=== PATIENT | female | born 1970 | race American Indian/Alaskan Native ===

== ENCOUNTER 2016-12-19 16:57 | Emergency (ER) | payer OTHER ==
[2016-12-19 20:04] LABS: Bilirubin,Urine NEG (Negative); Blood,Urine NEG (Negative); Ketones,Urine TR mg/dL (Negative); Leukocyte Esterase,Urine TR (Negative); Mucus,Urine 2+ /HPF; Nitrite,Urine NEG (Negative)
[2016-12-19 20:05] VITALS: BP 107/73
[2016-12-19] MEDS ORDERED: BENADRYL IV ONE (21:02)
[2016-12-19] MEDS ORDERED: REGLAN IV ONE (21:02)
--- NOTE | 2016-12-19 21:04 | Emergency Department Report ---
ED Headache HPI - General Chief Complaint: Headache Stated Complaint: HEADACHE X 1 MONTH/DIABETIC Time Seen by Provider: 12/19/16 19:28 - History of Present Illness Initial Comments: She is a 46-year-old female with a history of diabetes controlled with insulin presents to ED complaining of headaches for the past couple of months. Patient states headache is localized to frontal and hospital region of the head. She describes it as throbbing in nature that speak, be constant. Patient rates the pain a 10 out of 10 in intensity stating she is taking Aleve and naproxen with no relief. Patient states headache is worsened by sunlight during these headache. She denies fevers/chills/nausea/vomiting/blurry vision/dizziness. Quality: severe Head Injury Location: frontal, occipital Recent Head Trauma: no recent headache/trauma, frequent headaches, chronic headaches Allergies/Adverse Reactions: Allergies haloperidol [From Haldol] Allergy (Verified 12/11/14 16:51) Seizure haloperidol lactate [From Haldol] Allergy (Verified 12/11/14 16:51) Seizure Home Medications: Ambulatory Orders Fluconazole [Diflucan] 150 mg PO QDAY #3 tablet 08/04/13 HYDROcodone/APAP 5-325 [[place] 5/325 mg] 1 - 2 each PO Q4-6H PRN #14 tablet 08/04 Butalb/Acetaminophen/Caffeine [Fioricet 50-300-40 mg CAP] 1 cap PO Q8HR PRN #30 cap 12/19/16 Prochlorperazine [Compazine] 10 mg PO BID #30 tablet 12/19/16 ED Review of Systems ROS: Stated complaint: HEADACHE X 1 MONTH/DIABETIC Other details as noted in HPI Constitutional: denies: chills, fever Eyes: denies: eye pain, eye discharge, vision change ENT: denies: ear pain, throat pain Respiratory: denies: cough, shortness of breath, wheezing Cardiovascular: denies: chest pain, palpitations Endocrine: no symptoms reported Gastrointestinal: denies: abdominal pain, nausea, diarrhea Genitourinary: denies: urgency, dysuria, frequency, hematuria, discharge Musculoskeletal: denies: back pain, joint swelling, arthralgia Skin: denies: rash, lesions Neurological: headache. denies: weakness, numbness, paresthesias, confusion Psychiatric: denies: anxiety, depression Hematological/Lymphatic: denies: easy bleeding, easy bruising ED Past Medical Hx - Past Medical History Previous Medical History?: Yes Hx Diabetes: Yes Hx Psychiatric Treatment: Yes (MANIC DEPRESSION) Additional medical history: fibromyalgia. - Surgical History Additional Surgical History: ECTOPIC . TONSILLECTOMY - Social History Smoking Status: Current Every Day Smoker Substance Use Type: None - Medications Home Medications: Home Medications Medication Instructions Recorded Confirmed Last Taken Type Fluconazole [Diflucan] 150 mg PO QDAY #3 tablet 08/04/13 Unknown Rx HYDROcodone/APAP 5-325 [[place] 1 - 2 each PO Q4-6H PRN #14 tablet 08/04/13 Unknown Rx 5/325 mg] Butalb/Acetaminophen/Caffeine 1 cap PO Q8HR PRN #30 cap 12/19/16 Unknown Rx [Fioricet 50-300-40 mg CAP] Prochlorperazine [Compazine] 10 mg PO BID #30 tablet 12/19/16 Unknown Rx ED Physical Exam - General Limitations: No Limitations General appearance: alert, in no apparent distress - Head Head exam: Present: atraumatic, normocephalic - Eye Eye exam: Present: normal appearance, PERRL, EOMI. Absent: conjunctival injection, nystagmus Pupils: Present: normal accommodation - ENT ENT exam: Present: mucous membranes moist - Neck Neck exam: Present: normal inspection. Absent: tenderness, lymphadenopathy - Respiratory Respiratory exam: Present: normal lung sounds bilaterally. Absent: respiratory distress - Cardiovascular Cardiovascular Exam: Present: regular rate, normal rhythm. Absent: systolic murmur, diastolic murmur, rubs, gallop - GI/Abdominal GI/Abdominal exam: Present: soft, normal bowel sounds - Extremities Exam Extremities exam: Present: normal inspection - Back Exam Back exam: Present: normal inspection. Absent: tenderness, CVA tenderness (R), CVA tenderness (L) - Neurological Exam Neurological exam: Present: alert, oriented X3, CN II-XII intact, normal gait. Absent: motor sensory deficit - Expanded Neurological Exam Expanded Patient oriented to: Present: person, place, time Cranial nerves: EOM's Intact: Normal, Facial Sensation: Normal Cerebellar function: Finger to Nose: Normal, Heel to [place]: Normal Sensory exam: Upper Extremity Light Touch: Normal, Upper Extremity Temperature: Normal, Lower Extremity Light Touch: Normal, Lower Extremity Pin Prick: Normal Motor strength exam: RUE: 5, LUE: 5, RLE: 5, LLE: 5 DTR: knee (R): 2+, knee (L): 2+ Best Eye Response ([place]): (4) open spontaneously Best Motor Response ([place]): (6) obeys commands Best Verbal Response ([place]): (5) oriented [place] Total: 15 - Psychiatric Psychiatric exam: Present: normal affect, normal mood - Skin Skin exam: Present: warm, dry, intact, normal color. Absent: rash ED Course Vital Signs 12/19/16 12/19/16 17:02 20:02 Temperature 98.8 F 98.4 F Pulse Rate 100 H 88 Respiratory 18 18 Rate Blood Pressure 122/80 Blood Pressure 107/73 [Left] O2 Sat by Pulse 99 100 Oximetry - Reevaluation(s) Reevaluation #1: Patient sleeping comfortably in the room. States pain is resolved. 12/19/16 22:17 ED Medical Decision Making - Lab Data Result diagrams: 12/19/16 22:00 12/19/16 22:00 Laboratory Results - last 24 hr 12/19/16 12/19/16 12/19/16 17:55 22:00 22:00 VBG pH 7.348 Sodium 136 L Potassium 4.3 Chloride 98.0 Carbon Dioxide 25 Anion Gap 17 BUN 9 Creatinine 0.7 Estimated GFR > 60 BUN/Creatinine Ratio 12.85 Glucose 232 H POC Glucose 352 H Calcium 8.6 Urine Color Urine Turbidity Urine pH Ur Specific [place] Urine Protein Urine Glucose (UA) Urine Ketones Urine Blood Urine Nitrite Urine Bilirubin Urine Urobilinogen Ur Leukocyte Esterase Urine WBC (Auto) Urine RBC (Auto) U Epithel Cells (Auto) Hyaline Casts Urine Mucus 12/19/16 Unknown VBG pH Sodium Potassium Chloride Carbon Dioxide Anion Gap BUN Creatinine Estimated GFR BUN/Creatinine Ratio Glucose POC Glucose Calcium Urine Color Yellow Urine Turbidity Clear Urine pH 6.0 Ur Specific [place] 1.031 H Urine Protein 30 mg/dl Urine Glucose (UA) >=500 Urine Ketones Tr Urine Blood Neg Urine Nitrite Neg Urine Bilirubin Neg Urine Urobilinogen 2.0 Ur Leukocyte Esterase Tr Urine WBC (Auto) 5.0 Urine RBC (Auto) 1.0 U Epithel Cells (Auto) 6.0 Hyaline Casts 1 Urine Mucus 2+ - Medical Decision Making 46-year-old female presents with migraine headache. CT of the head ordered. CT of the head shows no acute intracranial findings. CBC, BMP, urinalysis obtained. Blood glucose mildly elevated. Patient has taken insulin today. Discussed with patient to follow-up with primary physician for treatment of migraines Discussed patient to avoid triggers Patient received IV Benadryl and Reglan in ED She has no neurological deficit and is neurologically intact. Vital signs are normal patient is in no acute distress Critical care attestation.: If time is entered above; I have spent that time in minutes in the direct care of this critically ill patient, excluding procedure time. ED Disposition Clinical Impression: Migraine headache without aura Qualifiers: Status migrainosus presence: without status migrainosus Intractability: not intractable Qualified Code(s): G43.009 - Migraine without aura, not intractable , without status migrainosus Disposition: DC- TO HOME OR SELFCARE Is pt being admited?: No Does the pt Need Aspirin: No Condition: Stable Instructions: Migraine Headache (ED), Tension Headache (ED), Acute Headache (ED ) Prescriptions: Butalb/Acetaminophen/Caffeine [Fioricet 50-300-40 mg CAP] 1 cap PO Q8HR PRN #30 cap PRN Reason: Headache Prochlorperazine [Compazine] 10 mg PO BID #30 tablet Referrals: PRIMARY CARE, [Primary Care Provider] - 3-5 Days HERNANDEZ LOVETT MD [Staff Physician] - 3-5 Days [facility] [Outside] - 3-5 Days [facility] [Outside] - 3-[address] [facility] [Outside] - 3-5 Days Forms: Accompanied Note, Work/School Release Form(ED) Time of Disposition: 22:12
--- NOTE | 2016-12-19 21:40 | Cat Scan Report ---
FINAL REPORT EXAM: CT HEAD/BRAIN WO CON HISTORY: cerrato TECHNIQUE: Noncontrast CT axial images of the brain. PRIORS: 04 August 2013. FINDINGS: No parenchymal mass, mass effect, hemorrhage, midline shift or hydrocephalus. No evidence of acute cortical infarct. No abnormal, extra-axial fluid or air collection. Osseous calvarium grossly intact. Mild mucosal thickening in the bilateral ethmoid sinuses. IMPRESSION: 1. No acute intracranial findings.
[2016-12-19 22:27] LABS: Hemoglobin 13.1 gm/dl (10.1-14.3); Mean Corpuscular HGB Conc 34 % (30-34); Mean Corpuscular Hemoglobin 29 pg (28-32); Mean Corpuscular Volume 85 fl (79-97); Platelet Count 249 K/mm3 (140-440); Red Blood Count 4.59 M/mm3 (3.65-5.03); Red Cell Distribution Width 13.3 % (13.2-15.2); White Blood Count 7.1 K/mm3 (4.5-11.0)
[2016-12-19 22:33] LABS: Anion Gap 17 mmol/L; BUN/Creatinine Ratio 12.85; Blood Urea Nitrogen 9 mg/dL (7-17); Calcium 8.6 mg/dL (8.4-10.2); Carbon Dioxide 25 mmol/L (22-30); Glucose 232 mg/dL (65-100); Potassium 4.3 mmol/L (3.6-5.0); Sodium 136 mmol/L (137-145)
[2016-12-19 23:20] LABS: Basophils % (Manual) 0 % (0.0-1.8); Blastocytes % (Manual) 0 %; Hypochromasia 1+
[2016-12-19 23:21] LABS: Diff Status Complete; Elliptocytes Few
== END 2016-12-19 23:05 | disposition home or self-care (01) ==
LOC: ED 16:57
DX: G43.009 Migraine without aura, not intractable, without status migrainosus (principal); E11.9 Type 2 diabetes mellitus without complications; F32.9 Major depressive disorder, single episode, unspecified; F17.200 Nicotine dependence, unspecified, uncomplicated; Z88.8 Allergy status to other drugs, medicaments and biological substances
CPT/HCPCS: 36415; 70450; 80048; 81001; 82805; 82962; 85007; 85025; 96374; 96375; 99284; J1200; J2765

== ENCOUNTER 2017-01-12 12:54 | Inpatient (IN) | payer OTHER ==
[2017-01-12 13:49] LABS: Eosinophils % (Auto) 0.8 % (0.0-4.3); Hematocrit 42.6 % (30.3-42.9); Hemoglobin 14.1 gm/dl (10.1-14.3); Mean Corpuscular HGB Conc 33 % (30-34); Mean Corpuscular Hemoglobin 29 pg (28-32); Mean Corpuscular Volume 86 fl (79-97); Platelet Count 284 K/mm3 (140-440); Red Blood Count 4.94 M/mm3 (3.65-5.03); Red Cell Distribution Width 13.3 % (13.2-15.2); White Blood Count 6.9 K/mm3 (4.5-11.0)
[2017-01-12 14:10] LABS: Anion Gap 18 mmol/L; Blood Urea Nitrogen 7 mg/dL (7-17); Calcium 9.4 mg/dL (8.4-10.2); Carbon Dioxide 27 mmol/L (22-30); Chloride 91.2 mmol/L (98-107); Glucose 280 mg/dL (65-100); Potassium 4.2 mmol/L (3.6-5.0); Sodium 132 mmol/L (137-145)
[2017-01-12] MEDS ORDERED: PHENERGAN PO ONE (20:44)
--- NOTE | 2017-01-12 20:44 | Emergency Department Report ---
HPI - General Chief Complaint: Extremity Problem,Nontraumatic Time Seen by Provider: 01/12/17 20:28 - HPI HPI: Room 8 The patient is a 46-year-old female presenting with a chief complaint of intermittent left-sided paresthesia. The patient states for the past 4 days she has had intermittent numbness and "locking up" of her left side. Patient states her left arm and left leg suffers from pain and numbness intermittently for the past 4 days. Patient states the symptoms last for approximate 5 minutes and then resolved. The patient states she is having 3-4 episodes a day. Patient denies dysarthria or dysphagia. Currently the patient says she has numbness and tingling in her left lower extremity Location: Left side Duration: Intermittent 4 days Quality: Pain and numbness Severity: Moderate Modifying factors: [see above] Context: [see above] Mode of transportation: Unknown ED Past Medical Hx - Past Medical History Previous Medical History?: Yes Hx Diabetes: Yes Hx Psychiatric Treatment: Yes (MANIC DEPRESSION) Additional medical history: fibromyalgia. - Surgical History Past Surgical History?: Yes Additional Surgical History: ECTOPIC . TONSILLECTOMY - Family History Family history: no significant - Social History Smoking Status: Current Every Day Smoker Substance Use Type: Heroin (history of heroin use. Now being treated with methadone) - Medications Home Medications: Home Medications Medication Instructions Recorded Confirmed Last Taken Type Fluconazole [Diflucan] 150 mg PO QDAY #3 tablet 08/04/13 Unknown Rx HYDROcodone/APAP 5-325 [[place] 1 - 2 each PO Q4-6H PRN #14 tablet 08/04/13 Unknown Rx 5/325 mg] Butalb/Acetaminophen/Caffeine 1 cap PO Q8HR PRN #30 cap 12/19/16 Unknown Rx [Fioricet 50-300-40 mg CAP] Prochlorperazine [Compazine] 10 mg PO BID #30 tablet 12/19/16 Unknown Rx ED Review of Systems ROS: Stated complaint: HEADACHE,LEFT SIDE NUMBNESS Other details as noted in HPI Comment: All other systems reviewed and negative Constitutional: denies: chills, fever Eyes: denies: eye pain, eye discharge, vision change ENT: denies: ear pain, throat pain Respiratory: denies: cough, shortness of breath, wheezing Cardiovascular: denies: chest pain, palpitations Endocrine: no symptoms reported Gastrointestinal: denies: abdominal pain, nausea, diarrhea Genitourinary: denies: urgency, dysuria, discharge Musculoskeletal: denies: back pain Skin: denies: rash, lesions Neurological: headache, numbness, paresthesias Psychiatric: denies: anxiety, depression Hematological/Lymphatic: denies: easy bleeding, easy bruising Physical Exam - Physical Exam Vital Signs: Vital Signs 01/12/17 01/12/17 13:00 19:07 Temperature 98.5 F Pulse Rate 87 74 Respiratory 16 18 Rate Blood Pressure 164/104 Blood Pressure 136/98 [Left] O2 Sat by Pulse 100 100 Oximetry Physical Exam: GENERAL: The patient is well-developed well-nourished female lying on stretcher not appear to be in acute distress. [] HEENT: Normocephalic. Atraumatic. Extraocular motions are intact. Patient has moist mucous membranes. NECK: Supple. No meningitic signs are noted. There is no adenopathy noted. CHEST/LUNGS: Clear to auscultation. There is no respiratory distress noted. HEART/CARDIOVASCULAR: Regular. There is no tachycardia. There is no gallop rub or murmur. ABDOMEN: Abdomen is soft, nontender. Patient has normal bowel sounds. There is no abdominal distention. SKIN: There is no rash. There is no edema. There is no diaphoresis. NEURO: The patient is awake, alert, and oriented. The patient is cooperative. Cranial nerves II through XII grossly intact, no drift. Credit Controller 5+/5 bilaterally. Moves all of these well. The patient has normal speech MUSCULOSKELETAL: There is no evidence of acute injury. ED Course Vital Signs 01/12/17 01/12/17 13:00 19:07 Temperature 98.5 F Pulse Rate 87 74 Respiratory 16 18 Rate Blood Pressure 164/104 Blood Pressure 136/98 [Left] O2 Sat by Pulse 100 100 Oximetry ED Medical Decision Making - Lab Data Result diagrams: 01/12/17 13:26 01/12/17 13:26 Laboratory Tests 01/12/17 01/12/17 01/12/17 13:26 13:26 13:26 WBC 6.9 RBC 4.94 Hgb 14.1 Hct 42.6 MCV 86 MCH 29 MCHC 33 RDW 13.3 Plt Count 284 Lymph % (Auto) 48.0 H [place] % (Auto) 4.6 Eos % (Auto) 0.8 Baso % (Auto) 1.0 Lymph # 3.3 [place] # 0.3 Eos # 0.1 Baso # 0.1 Seg Neutrophils % 45.6 Seg Neutrophils # 3.2 Sodium 132 L Potassium 4.2 Chloride 91.2 L Carbon Dioxide 27 Anion Gap 18 BUN 7 Creatinine 0.5 L Estimated GFR > 60 BUN/Creatinine Ratio 14.00 Glucose 280 H POC Glucose Calcium 9.4 TSH 0.707 01/12/17 19:00 WBC RBC Hgb Hct MCV MCH MCHC RDW Plt Count Lymph % (Auto) [place] % (Auto) Eos % (Auto) Baso % (Auto) Lymph # [place] # Eos # Baso # Seg Neutrophils % Seg Neutrophils # Sodium Potassium Chloride Carbon Dioxide Anion Gap BUN Creatinine Estimated GFR BUN/Creatinine Ratio Glucose POC Glucose 149 H Calcium TSH - Radiology Data Radiology results: report reviewed (CT head), image reviewed (CT head) CT head (read by radiologist) -no acute findings - Differential Diagnosis TIA, complex migraine, CVA, malingering Critical care attestation.: If time is entered above; I have spent that time in minutes in the direct care of this critically ill patient, excluding procedure time. ED Disposition Clinical Impression: TIA (transient ischemic attack) Disposition: -09 OP ADMIT IP TO THIS HOSP Is pt being admited?: Yes Does the pt Need Aspirin: Yes Condition: Fair Referrals: PRIMARY CARE, [Primary Care Provider] - 3-5 Days Time of Disposition: 21:50 (hospitalist paged)
--- NOTE | 2017-01-12 21:45 | Cat Scan Report ---
FINAL REPORT EXAM: CT HEAD/BRAIN WO CON HISTORY: headache, left-sided paresthesia TECHNIQUE: Noncontrast CT axial images of the brain. PRIORS: 19 December 2016. FINDINGS: No parenchymal mass, mass effect, hemorrhage, midline shift or hydrocephalus. No evidence of acute cortical infarct. No abnormal, extra-axial fluid or air collection. Osseous calvarium grossly intact. Mild mucosal thickening in the ethmoid sinuses. IMPRESSION: 1. No acute intracranial findings.
[2017-01-12] MEDS ORDERED: ASPIRIN PO ONE (21:50)
[2017-01-12] MEDS ORDERED: D50W (25GM) Syringe IV PRN (22:59)
[2017-01-12] MEDS ORDERED: PROVENTIL IH PRN (22:59)
[2017-01-12] MEDS ORDERED: ALUM-MAG HYDROX-SIMETH 200-200-20MG/5ML PO PRN (22:59)
[2017-01-12] MEDS ORDERED: MILK OF MAGNESIA PO PRN (22:59)
[2017-01-12] MEDS ORDERED: ZOFRAN IV PRN (22:59)
[2017-01-12] MEDS ORDERED: NORCO 5/325 PO PRN (22:59)
[2017-01-12] MEDS ORDERED: DULCOLAX PR PRN (22:59)
[2017-01-12] MEDS ORDERED: AMBIEN PO PRN (22:59)
[2017-01-12] MEDS ORDERED: TYLENOL PO PRN (22:59)
[2017-01-12] MEDS ORDERED: NACL 0.9% 1000 ML 1,000 ML IV SCH (23:00)
[2017-01-12] MEDS ORDERED: NON-FORMULARY (Butalb/Acetaminophen/Caffeine [Fioricet 50-300-40 Mg Cap] 1 CAP) PO PRN (23:07)
--- NOTE | 2017-01-12 23:13 | History and Physical Report ---
History of Present Illness Date of examination: 01/12/17 Chief complaint: Left-sided face arm and leg tingling numbness and weakness intermittent since last Monday History of present illness: The patient is a 46-year-old female presenting with a chief complaint of intermittent left-sided paresthesia. The patient states for the past 4 days she has had intermittent numbness and "locking up" of her left side. Patient states her left arm and left leg suffers from pain and numbness intermittently for the past 4 days. Patient states the symptoms last for approximate 5 minutes and then resolved. The patient states she is having 3-4 episodes a day. Patient denies dysarthria or dysphagia. Currently the patient says she has numbness and tingling in her left lower extremity Past History Past Medical History: diabetes Medications and Allergies Allergies Allergy/AdvReac Type Severity Reaction Status Date / Time haloperidol [From Haldol] Allergy Seizure Verified 01/12/17 13:07 haloperidol lactate Allergy Seizure Verified 01/12/17 13:07 [From Haldol] Home Medications Medication Instructions Recorded Confirmed Last Taken Type Butalb/Acetaminophen/Caffeine 1 cap PO Q8HR PRN #30 cap 12/19/16 01/12/17 Unknown Rx [Fioricet 50-300-40 mg CAP] Prochlorperazine [Compazine] 10 mg PO BID #30 tablet 12/19/16 01/12/17 Unknown Rx Insulin Detemir [Levemir VIAL] 75 unit SQ QHS 01/12/17 01/12/17 Unknown History Review of Systems All systems: negative (all 14 systems reviewed and found to be negative except as mentioned in HPI) Exam - Physical Exam Narrative exam: Gen - patient is well-developed well-nourished, awake alert oriented to time place and person evidence of acute distress HEENT - head is atraumatic normocephalic, pupils equal round reactive to light, extraocular movements intact, oral mucosa moist, oropharynx clear, neck is supple no JVD no thyromegaly or lymphadenopathy. No carotid bruit. Trachea is midline Heart -regular rate and rhythm , no murmurs or gallops. PMI nondisplaced Lungs - clear to auscultation bilaterally. Nonlabored breathing. Normal chest wall expansion. Abdomen - soft, nondistended, nontender, normoactive bowel sounds. No hepatosplenomegaly. No abdominal masses appreciated. Extremities - no cyanosis or edema Neurological - grossly intact and nonfocal. Strength is 5 out of 5 all 4 extremities. Sensations intact. No cerebellar signs. Skin - warm and dry no rashes or bruises Psychiatric - anxious mood appropriate affect Vascular system - no lymphadenopathy distal pulses 2+ bilaterally - Constitutional Vitals: Temp Pulse Resp BP Pulse Ox 98.5 F 74 18 136/98 100 01/12/17 13:00 01/12/17 19:07 01/12/17 19:07 01/12/17 19:07 01/12/17 19:07 Results - Labs CBC & Chem 7: 01/12/17 13:26 01/12/17 13:26 Labs: Laboratory Last Values WBC 6.9 K/mm3 (4.5-11.0) 01/12/17 13:26 RBC 4.94 M/mm3 (3.65-5.03) 01/12/17 13:26 Hgb 14.1 gm/dl (10.1-14.3) 01/12/17 13:26 Hct 42.6 % (30.3-42.9) 01/12/17 13:26 MCV 86 fl (79-97) 01/12/17 13:26 MCH 29 pg (28-32) 01/12/17 13:26 MCHC 33 % (30-34) 01/12/17 13:26 RDW 13.3 % (13.2-15.2) 01/12/17 13:26 Plt Count 284 K/mm3 (140-440) 01/12/17 13:26 Lymph % (Auto) 48.0 % (13.4-35.0) H 01/12/17 13:26 [place] % (Auto) 4.6 % (0.0-7.3) 01/12/17 13:26 Eos % (Auto) 0.8 % (0.0-4.3) 01/12/17 13:26 Baso % (Auto) 1.0 % (0.0-1.8) 01/12/17 13:26 Lymph # 3.3 K/mm3 (1.2-5.4) 01/12/17 13:26 [place] # 0.3 K/mm3 (0.0-0.8) 01/12/17 13:26 Eos # 0.1 K/mm3 (0.0-0.4) 01/12/17 13:26 Baso # 0.1 K/mm3 (0.0-0.1) 01/12/17 13:26 Seg Neutrophils % 45.6 % (40.0-70.0) 01/12/17 13:26 Seg Neutrophils # 3.2 K/mm3 (1.8-7.7) 01/12/17 13:26 Sodium 132 mmol/L (137-145) L 01/12/17 13:26 Potassium 4.2 mmol/L (3.6-5.0) 01/12/17 13:26 Chloride 91.2 mmol/L (98-107) L 01/12/17 13:26 Carbon Dioxide 27 mmol/L (22-30) 01/12/17 13:26 Anion Gap 18 mmol/L 01/12/17 13:26 BUN 7 mg/dL (7-17) 01/12/17 13:26 Creatinine 0.5 mg/dL (0.7-1.2) L 01/12/17 13:26 Estimated GFR > 60 ml/min 01/12/17 13:26 BUN/Creatinine Ratio 14.00 % 01/12/17 13:26 Glucose 280 mg/dL (65-100) H 01/12/17 13:26 POC Glucose 149 (70-105) H 01/12/17 19:00 Calcium 9.4 mg/dL (8.4-10.2) 01/12/17 13:26 TSH 0.707 mlU/mL (0.270-4.200) 01/12/17 13:26
[2017-01-13] MEDS ORDERED: FIORICET PO PRN (00:15)
[2017-01-13 02:02] LABS: Creatine Kinase MB < 1.0 ng/mL (0.0-4.0)
[2017-01-13 02:05] LABS: Creatine Kinase 48 units/L (30-135)
[2017-01-13 02:18] LABS: Basophils % (Auto) 0.5 % (0.0-1.8); Eosinophils % (Auto) 0.9 % (0.0-4.3); Hematocrit 39.8 % (30.3-42.9); Hemoglobin 13.4 gm/dl (10.1-14.3); Mean Corpuscular HGB Conc 34 % (30-34); Mean Corpuscular Hemoglobin 29 pg (28-32); Mean Corpuscular Volume 86 fl (79-97); Platelet Count 261 K/mm3 (140-440); Red Blood Count 4.65 M/mm3 (3.65-5.03); Red Cell Distribution Width 13.3 % (13.2-15.2); White Blood Count 8.4 K/mm3 (4.5-11.0)
[2017-01-13 02:42] LABS: Alanine Aminotransferase 18 units/L (7-56); Albumin 3.7 g/dL (3.9-5); Alkaline Phosphatase 59 units/L (35-129); Anion Gap 19 mmol/L; Blood Urea Nitrogen 9 mg/dL (7-17); Calcium 8.8 mg/dL (8.4-10.2); Carbon Dioxide 26 mmol/L (22-30); Chloride 94.7 mmol/L (98-107); Glucose 242 mg/dL (65-100); Potassium 3.9 mmol/L (3.6-5.0); Sodium 136 mmol/L (137-145); Total Protein 7.5 g/dL (6.3-8.2)
[2017-01-13 07:53] LABS: Creatine Kinase 42 units/L (30-135)
[2017-01-13 07:54] LABS: Creatine Kinase MB < 1.0 ng/mL (0.0-4.0)
[2017-01-13] MEDS: NOVOLOG SUB-Q SCH ×4 (09:34→23:07)
[2017-01-13] MEDS: ASPIRIN PO SCH (09:35)
[2017-01-13] MEDS: PEPCID PO SCH ×2 (09:35→22:03)
[2017-01-13] MEDS: COMPAZINE PO SCH ×2 (09:35→22:04)
[2017-01-13] MEDS: SENOKOT PO SCH ×2 (09:35→22:03)
[2017-01-13] MEDS: LOVENOX SUB-Q SCH (09:35)
--- NOTE | 2017-01-13 11:38 | Discharge Summary ---
Providers - Providers Date of Admission: 01/12/17 22:59 Attending physician: ERICA LOZOYA MD Primary care physician: [facility] Hospitalization Reason for admission: TIA Condition: Stable Hospital course: The patient is a 46-year-old female presenting with a chief complaint of intermittent left-sided paresthesia. She reports that for 4 days she has had intermittent numbness and "locking up" of her left side. Patient states her left arm and left leg suffers from pain and numbness intermittently for the past 4 days. Patient states the symptoms last for approximate 5 minutes and then resolved. The patient states she is having 3-4 episodes a day. Patient denies dysarthria or dysphagia. On admission Currently the patient says she has numbness and tingling in her left lower extremity Left sided intermittent hemiplegia with paresthesias * Patient likely had a TIA. Although outpatient studies as noted below recommended. We'll continue patient on aspirin and statin. MRI showed chronic ischemic changes. * outpatient work up for rheumatoid and immunologic disease TIA Diabetes mellitus * On longterm insulin therapy, continue accuchecks Tobacco abuse * 15 mins counselling provided for cessation, resources provided Opioid dependent disorder * Continue Methadone Dyslipidemia * started on statin and educated patient on compliance with diet. Disposition: DC- TO HOME OR SELFCARE Time spent for discharge: 35 mins Core Measure Documentation - Palliative Care Palliative Care/ Comfort Measures: Not Applicable - Core Measures Any of the following diagnoses?: none - VTE Discharge Requirements Deep Vein Thrombosis/Pulmonary Embolism Present on Admission: No Exam - Physical Exam Narrative exam: VITAL SIGNS: Reviewed. GENERAL: The patient appeared well nourished and normally developed. Vital signs as documented. HEAD: No signs of head trauma. EYES: Pupils are equal. Extraocular motions intact. EARS: Hearing grossly intact. MOUTH: Oropharynx is normal. NECK: No adenopathy, no JVD. CHEST: Chest with clear breath sounds bilaterally. No wheezes, rales, or rhonchi. CARDIAC: Regular rate and rhythm. S1 and S2, without murmurs, gallops, or rubs. VASCULAR: No Edema. Peripheral pulses normal and equal in all extremities. ABDOMEN: Soft, without detectable tenderness. No sign of distention. No rebound or guarding, and no masses palpated. Bowel Sounds normal. MUSCULOSKELETAL: Good range of motion of all major joints. Extremities without clubbing, cyanosis or edema. NEUROLOGIC EXAM: Alert and oriented x 3. No focal sensory or strength deficits. Speech normal. Follows commands. PSYCHIATRIC: Mood normal. SKIN: No rash or lesions. - Constitutional Vitals: Temp Pulse Resp BP Pulse Ox 98.3 F 62 16 126/78 100 01/13/17 07:31 01/13/17 07:31 01/13/17 07:31 01/13/17 07:31 01/13/17 07:31 Plan Activity: advance as tolerated, fall precautions Diet: low salt Special Instructions: record daily BP diary Additional Instructions: follow with PCP for work up of lupus Follow up with: PRIMARY CAREMD [Primary Care Provider] - 3-5 Days LEXI MCGINNIS MD [Staff Physician] - 7 Days Prescriptions: Simvastatin [Zocor TAB] 40 mg PO QHS #30 tablet Aspirin [Adult Low Dose Aspirin EC] 81 mg PO DAILY #30 tablet.
[2017-01-13 12:42] LABS: Creatine Kinase 39 units/L (30-135)
[2017-01-13 12:47] LABS: Creatine Kinase MB < 1.0 ng/mL (0.0-4.0)
--- NOTE | 2017-01-13 15:38 | Progress Note ---
Assessment and Plan Assessment and plan: The patient is a 46-year-old female presenting with a chief complaint of intermittent left-sided paresthesia. She reports that for 4 days she has had intermittent numbness and "locking up" of her left side. Patient states her left arm and left leg suffers from pain and numbness intermittently for the past 4 days. Patient states the symptoms last for approximate 5 minutes and then resolved. The patient states she is having 3-4 episodes a day. Patient denies dysarthria or dysphagia. On admission Currently the patient says she has numbness and tingling in her left lower extremity Left sided intermittent hemiplegia with paresthesias * Evaluate for TIA, * ASA, STATIN, MRI * outpatient work up for rheumatoid and immunologic disease Diabetes mellitus * On group home insulin therapy, continue accuchecks Tobacco abuse * 15 mins counselling provided for cessation, resources provided Opioid dependent disorder * Continue Methadone Dyslipidemia * start on statin DVT/GI prophy Discussed plan of care with patient and nursing staff Discharge if MRI is negative. History Interval history: Patient seen and examined, in no acute distress. Reports resolution of symptoms. Hospitalist Physical - Physical exam Narrative exam: VITAL SIGNS: Reviewed. GENERAL: The patient appeared well nourished and normally developed. Vital signs as documented. HEAD: No signs of head trauma. EYES: Pupils are equal. Extraocular motions intact. EARS: Hearing grossly intact. MOUTH: Oropharynx is normal. NECK: No adenopathy, no JVD. CHEST: Chest with clear breath sounds bilaterally. No wheezes, rales, or rhonchi. CARDIAC: Regular rate and rhythm. S1 and S2, without murmurs, gallops, or rubs. VASCULAR: No Edema. Peripheral pulses normal and equal in all extremities. ABDOMEN: Soft, without detectable tenderness. No sign of distention. No rebound or guarding, and no masses palpated. Bowel Sounds normal. MUSCULOSKELETAL: Good range of motion of all major joints. Extremities without clubbing, cyanosis or edema. NEUROLOGIC EXAM: Alert and oriented x 3. No focal sensory or strength deficits. Speech normal. Follows commands. PSYCHIATRIC: Mood normal. SKIN: No rash or lesions. - Constitutional Vitals: Temp Pulse Resp BP Pulse Ox 98.3 F 62 16 126/78 100 01/13/17 07:31 01/13/17 07:31 01/13/17 07:31 01/13/17 07:31 01/13/17 07:31 Results - Labs CBC & Chem 7: 01/13/17 02:03 01/13/17 02:03 Labs: Laboratory Last Values WBC 8.4 K/mm3 (4.5-11.0) 01/13/17 02:03 RBC 4.65 M/mm3 (3.65-5.03) 01/13/17 02:03 Hgb 13.4 gm/dl (10.1-14.3) 01/13/17 02:03 Hct 39.8 % (30.3-42.9) 01/13/17 02:03 MCV 86 fl (79-97) 01/13/17 02:03 MCH 29 pg (28-32) 01/13/17 02:03 MCHC 34 % (30-34) 01/13/17 02:03 RDW 13.3 % (13.2-15.2) 01/13/17 02:03 Plt Count 261 K/mm3 (140-440) 01/13/17 02:03 Lymph % (Auto) 46.8 % (13.4-35.0) H 01/13/17 02:03 [place] % (Auto) 5.9 % (0.0-7.3) 01/13/17 02:03 Eos % (Auto) 0.9 % (0.0-4.3) 01/13/17 02:03 Baso % (Auto) 0.5 % (0.0-1.8) 01/13/17 02:03 Lymph # 3.9 K/mm3 (1.2-5.4) 01/13/17 02:03 [place] # 0.5 K/mm3 (0.0-0.8) 01/13/17 02:03 Eos # 0.1 K/mm3 (0.0-0.4) 01/13/17 02:03 Baso # 0.0 K/mm3 (0.0-0.1) 01/13/17 02:03 Seg Neutrophils % 45.9 % (40.0-70.0) 01/13/17 02:03 Seg Neutrophils # 3.9 K/mm3 (1.8-7.7) 01/13/17 02:03 Sodium 136 mmol/L (137-145) L 01/13/17 02:03 Potassium 3.9 mmol/L (3.6-5.0) 01/13/17 02:03 Chloride 94.7 mmol/L (98-107) L 01/13/17 02:03 Carbon Dioxide 26 mmol/L (22-30) 01/13/17 02:03 Anion Gap 19 mmol/L 01/13/17 02:03 BUN 9 mg/dL (7-17) 01/13/17 02:03 Creatinine 0.6 mg/dL (0.7-1.2) L 01/13/17 02:03 Estimated GFR > 60 ml/min 01/13/17 02:03 BUN/Creatinine Ratio 15.00 % 01/13/17 02:03 Glucose 242 mg/dL (65-100) H 01/13/17 02:03 POC Glucose 136 (70-105) H 01/13/17 11:45 Calcium 8.8 mg/dL (8.4-10.2) 01/13/17 02:03 Total Bilirubin 0.20 mg/dL (0.1-1.2) 01/13/17 02:03 AST 23 units/L (5-40) 01/13/17 02:03 ALT 18 units/L (7-56) 01/13/17 02:03 Alkaline Phosphatase 59 units/L (35-129) 01/13/17 02:03 Total Creatine Kinase 39 units/L (30-135) 01/13/17 11:56 CK-MB (CK-2) < 1.0 ng/mL (0.0-4.0) 01/13/17 11:56 CK-MB (CK-2) Rel Index 2.5 (0-4) 01/13/17 11:56 Troponin T < 0.010 ng/mL (0.00-0.029) 01/13/17 11:56 Total Protein 7.5 g/dL (6.3-8.2) 01/13/17 02:03 Albumin 3.7 g/dL (3.9-5) L 01/13/17 02:03 Albumin/Globulin Ratio 1.0 % 01/13/17 02:03 Triglycerides 201 mg/dL (2-149) H 01/12/17 23:26 Cholesterol 200 mg/dL (50-199) H 01/12/17 23:26 LDL Cholesterol Direct 112 mg/dL (50-130) 01/12/17 23:26 HDL Cholesterol 48 mg/dL (40-59) 01/12/17 23:26 Cholesterol/HDL Ratio 4.16 % 01/12/17 23:26 TSH 0.750 mlU/mL (0.270-4.200) 01/12/17 23:26 - Imaging and Cardiology CT Scan - head: image reviewed (NEGATIVE)
--- NOTE | 2017-01-13 18:32 | Magnetic Resonance Report ---
FINAL REPORT EXAM: MR BRAIN WO CON HISTORY: Acute AMS with dysphagia, r/o CVA TECHNIQUE: Multi sequence multi planar MR images obtained of the brain without gadolinium. PRIORS: CT scan of the head from 01/12/2017 FINDINGS: There is no mass effect or midline shift. There are no abnormal intra or extra-axial fluid collections. Cortical sulci and lateral ventricles are normal in size and configuration. The brainstem and cerebellum appear within normal limits. Foci of hyperintense T2 and FLAIR signal are seen in the white matter of the frontal lobes and right temporal lobe. Diffusion-weighted imaging does not show definite evidence of acute or subacute infarct. There are flow voids indicating patency seen in the major vascular structures. Orbits appear normal and symmetric. Paranasal sinuses appear clear. The craniocervical junction appears normal. IMPRESSION: 1. Diffusion-weighted imaging does not show definite evidence of acute or subacute infarct. 2. There are foci of hyperintense T2 and FLAIR signal in the white matter of the cerebral hemispheres. This is a nonspecific finding. It may be related to chronic ischemic change from small vessel disease. Differential diagnosis would include a demyelinating process such as multiple sclerosis. Correlation with laboratory values is necessary.
[2017-01-13] MEDS ORDERED: LEVEMIR SUB-Q SCH (22:00)
[2017-01-14] MEDS: NOVOLOG SUB-Q SCH ×2 (08:09→11:18)
[2017-01-14] MEDS: LOVENOX SUB-Q SCH (11:13)
[2017-01-14] MEDS: SENOKOT PO SCH (11:15)
[2017-01-14] MEDS: COMPAZINE PO SCH (11:15)
[2017-01-14] MEDS: PEPCID PO SCH (11:15)
[2017-01-14] MEDS: ASPIRIN PO SCH (11:16)
[2017-01-14] MEDS ORDERED: Fluarix Quad 2017-2018(36 MOS+) IM ONE (12:00)
[2017-01-14] MEDS ORDERED: PNEUMOVAX 23 IM ONE (12:00)
[2017-01-14 12:25] VITALS: BP 103/58
== END 2017-01-14 13:51 | disposition home or self-care (01) | DRG 69 ==
LOC: ED 12:54 → 3A 22:59
PROVIDERS: ADMIT Internal Medicine Geriatric Medicine; ATTEND Internal Medicine
PROC: 3E0234Z Introduction of Serum, Toxoid and Vaccine into Muscle, Percutaneous Approach (ICD-10-PCS; principal; 2017-01-14)
DX: G45.9 Transient cerebral ischemic attack, unspecified (principal); G81.94 Hemiplegia, unspecified affecting left nondominant side; F11.20 Opioid dependence, uncomplicated; F33.9 Major depressive disorder, recurrent, unspecified; R20.9 Unspecified disturbances of skin sensation; E11.9 Type 2 diabetes mellitus without complications; F17.200 Nicotine dependence, unspecified, uncomplicated; E78.5 Hyperlipidemia, unspecified; I10 Essential (primary) hypertension; Z79.4 Long term (current) use of insulin; Z71.6 Tobacco abuse counseling; Z79.899 Other long term (current) drug therapy; Z23 Encounter for immunization
CPT/HCPCS: 36415; 70450; 70551; 80048; 80053; 80061; 82550; 82553; 82962; 84443; 84484; 85025; 90686; 90732; 99406; J1650; J1815; J1818; J7030; Q0164; Q0169

== ENCOUNTER 2018-09-18 12:50 | Emergency (ER) | payer OTHER, SELFPAY ==
--- NOTE | 2018-09-18 13:41 | Emergency Department Report ---
Chief Complaint: Seizure Stated Complaint: SEIZURE/HEAD PAIN Time Seen by Provider: 09/18/18 13:33 - HPI History of Present Illness: This is a 48 y.o. female that reports to the ER after syncopal episode/seizure. Patient was found by mother passed out on the floor this morning. PMH: DM, HTN, TIAs Patient reports snorting heroin last night and unsure if this is the cause of possible seizure. - Exam Vital Signs: Vital Signs 09/18/18 13:32 Temperature 98.4 F Pulse Rate 80 Respiratory 20 Rate Blood Pressure 150/96 O2 Sat by Pulse 100 Oximetry MSE screening note: Focused history and physical exam performed. Due to findings the following was ordered: ED Disposition for MSE Condition: Stable
[2018-09-18 14:14] LABS: Hematocrit 39.8 % (30.3-42.9); Hemoglobin 13.5 gm/dl (10.1-14.3); Mean Corpuscular HGB Conc 34 % (30-34); Mean Corpuscular Volume 86 fl (79-97); Platelet Count 301 K/mm3 (140-440); Red Blood Count 4.63 M/mm3 (3.65-5.03); Red Cell Distribution Width 13.4 % (13.2-15.2)
--- NOTE | 2018-09-18 14:28 | Emergency Department Report ---
ED Seizure HPI - General Chief Complaint: Seizure Stated Complaint: SEIZURE/HEAD PAIN Time Seen by Provider: 09/18/18 13:33 Source: patient Mode of arrival: Ambulatory Limitations: No Limitations - History of Present Illness Initial Comments: Patient is 48 years old female with history of diabetes and fibromyalgia. Patient brought by her mother for evaluation of seizure-like activity that happened twice at home. While patient in the waiting area she stepped outside to approximate lot and she started having generalized tonic-clonic seizure witnessed by staff and her mother with post ictal confusion. No injury. No history of prior seizure before. Mother stated that she had 3 seizures today. Mother denying any use of chronic collection agent or benzodiazepine. No recent head injury. MD Complaint: seizure -: Last night Description of Episode: loss of consciousness, tonic-clonic movement, post-event confusion Witnessed:: Yes Seizure History: none Place: home, street/outdoors Possible Precipitating Event: none Associated Symptoms: denies other symptoms - Related Data Home Medications Medication Instructions Recorded Confirmed Last Taken Insulin Detemir [Levemir VIAL] 75 unit SQ QHS 01/12/17 01/12/17 Unknown ALPRAZolam [Xanax TAB] 2 mg PO BID 01/13/17 01/13/17 Unknown Insulin Detemir [Levemir VIAL] 75 units SQ BID 01/13/17 01/13/17 Unknown [place] 150 mg PO BID 01/13/17 01/13/17 Unknown Methadone 10 mg PO TID PRN 01/13/17 01/13/17 Unknown traZODone [Desyrel] 150 mg PO BID 01/13/17 01/13/17 Unknown Previous Rx's Medication Instructions Recorded Last Taken Type Butalb/Acetaminophen/Caffeine 1 cap PO Q8HR PRN #30 cap 12/19/16 Unknown Rx [Fioricet 50-300-40 mg CAP] Prochlorperazine [Compazine] 10 mg PO BID #30 tablet 12/19/16 Unknown Rx Aspirin [Adult Low Dose Aspirin EC] 81 mg PO DAILY #30 tablet. 01/13/17 Unknown Rx Simvastatin [Zocor TAB] 40 mg PO QHS #30 tablet 01/13/17 Unknown Rx Allergies Allergy/AdvReac Type Severity Reaction Status Date / Time haloperidol [From Haldol] Allergy Seizure Verified 01/12/17 13:07 haloperidol lactate Allergy Seizure Verified 01/12/17 13:07 [From Haldol] ED Review of Systems ROS: Stated complaint: SEIZURE/HEAD PAIN Other details as noted in HPI Comment: All other systems reviewed and negative Constitutional: denies: chills, fever Respiratory: denies: cough, shortness of breath Cardiovascular: denies: chest pain Gastrointestinal: denies: abdominal pain, nausea, vomiting, diarrhea, constipation, hematemesis, melena, hematochezia Musculoskeletal: denies: back pain Neurological: denies: headache, weakness ED Past Medical Hx - Past Medical History Hx Diabetes: Yes Hx Arthritis: Yes Hx Psychiatric Treatment: Yes (MANIC DEPRESSION) Additional medical history: fibromyalgia. - Surgical History Additional Surgical History: ECTOPIC . TONSILLECTOMY - Social History Smoking Status: Current Every Day Smoker - Medications Home Medications: Home Medications Medication Instructions Recorded Confirmed Last Taken Type Butalb/Acetaminophen/Caffeine 1 cap PO Q8HR PRN #30 cap 12/19/16 01/12/17 Unknown Rx [Fioricet 50-300-40 mg CAP] Prochlorperazine [Compazine] 10 mg PO BID #30 tablet 12/19/16 01/12/17 Unknown Rx Insulin Detemir [Levemir VIAL] 75 unit SQ QHS 01/12/17 01/12/17 Unknown History ALPRAZolam [Xanax TAB] 2 mg PO BID 01/13/17 01/13/17 Unknown History Aspirin [Adult Low Dose Aspirin EC] 81 mg PO DAILY #30 tablet. 01/13/17 Unknown Rx Insulin Detemir [Levemir VIAL] 75 units SQ BID 01/13/17 01/13/17 Unknown History [place] 150 mg PO BID 01/13/17 01/13/17 Unknown History Methadone 10 mg PO TID PRN 01/13/17 01/13/17 Unknown History Simvastatin [Zocor TAB] 40 mg PO QHS #30 tablet 01/13/17 Unknown Rx traZODone [Desyrel] 150 mg PO BID 01/13/17 01/13/17 Unknown History ED Physical Exam - General Limitations: No Limitations General appearance: alert, in no apparent distress, postictal - Head Head exam: Present: atraumatic, normocephalic, normal inspection - Eye Eye exam: Present: normal appearance - ENT ENT exam: Present: normal exam, normal orophraynx, mucous membranes moist - Neck Neck exam: Present: normal inspection, full ROM. Absent: tenderness, meningismus, lymphadenopathy, thyromegaly - Respiratory Respiratory exam: Present: normal lung sounds bilaterally - Cardiovascular Cardiovascular Exam: Present: regular rate, normal rhythm, normal heart sounds - GI/Abdominal GI/Abdominal exam: Present: soft, normal bowel sounds. Absent: distended, tenderness, guarding, rebound, rigid, organomegaly, mass, bruit, pulsatile mass, hernia - Extremities Exam Extremities exam: Present: normal inspection, full ROM, normal capillary refill - Back Exam Back exam: Present: normal inspection, full ROM. Absent: tenderness, CVA tenderness (R), CVA tenderness (L), muscle spasm, paraspinal tenderness, vertebral tenderness - Neurological Exam Neurological exam: Present: alert, oriented X3, CN II-XII intact, normal gait, reflexes normal - Psychiatric Psychiatric exam: Present: normal mood - Skin Skin exam: Present: warm, intact, normal color ED Course Vital Signs 09/18/18 09/18/18 13:32 15:14 Temperature 98.4 F Pulse Rate 80 Respiratory 20 16 Rate Blood Pressure 150/96 O2 Sat by Pulse 100 Oximetry ED Medical Decision Making - Lab Data Result diagrams: 09/18/18 13:42 09/18/18 13:42 - Radiology Data Radiology results: report reviewed CT brain is negative for acute finding. - Medical Decision Making Patient is 48 years old female with history of diabetes and fibromyalgia. Patient brought by her mother for evaluation of seizure-like activity that happened twice at home. While patient in the waiting area she stepped outside to approximate lot and she started having generalized tonic-clonic seizure witnessed by staff and her mother with post ictal confusion. No injury. No history of prior seizure before. Mother stated that she had 3 seizures today. Mother denying any use of chronic collection agent or benzodiazepine. No recent head injury. Patient received 2 mg of Ativan. 1 g of Keppra. No seizure activity observed in the emergency room. Patient is started on Keppra 500 mg twice a day and advised to follow-up with the neurologist in the next 2-3 days for further workup. Patient advised not to drive or operate machinery. Critical care attestation.: If time is entered above; I have spent that time in minutes in the direct care of this critically ill patient, excluding procedure time. ED Disposition Clinical Impression: Seizure Disposition: DC-01 TO HOME OR SELFCARE Is pt being admited?: No Condition: Stable Instructions: New-Onset Seizure in Adults (ED) Referrals: ARISTIDES HOUSTON MD [Primary Care Provider] - 3-5 Days KIRAN HERNANDEZ MD [Referring] - 3-5 Days
[2018-09-18] MEDS ORDERED: KEPPRA 1,000 MG/NS 0.75% 100ML 1,000 MG/100 ML BAG IV ONE (14:29)
[2018-09-18] MEDS ORDERED: NACL 0.9% 1000 ML 1,000 ML IV ONE (14:29)
[2018-09-18] MEDS ORDERED: ATIVAN IV ONE (14:29)
--- NOTE | 2018-09-18 14:30 | Cat Scan Report ---
PROCEDURE: CT HEAD/BRAIN WO CON TECHNIQUE: Computerized tomography of the head was performed without contrast material. CT DOSE LENGTH PRODUCT: 805.4 mGycm HISTORY: syncopal episode/seizure COMPARISONS: 01/12/2017 . FINDINGS: Slight mucosal thickening ethmoid sinuses. No acute air-fluid level visualized in the included air-filled sinuses. Bone windows demonstrate no acute fracture. The brain is without mass, mass effect, hemorrhage, or acute infarct. There is no extra-axial intracranial bleed, brain bleed, or midline shift. The ventricles and sulci are age-appropriate. IMPRESSION: No acute CVA, intracranial bleed, or brain mass This document is electronically signed by Felton Jacobsen MD., Sep 18 2018 02:28:18 PM ET
[2018-09-18 14:46] LABS: Alanine Aminotransferase 15 units/L (7-56); Albumin 3.7 g/dL (3.9-5); BUN/Creatinine Ratio 18; Blood Urea Nitrogen 9 mg/dL (7-17); Calcium 9.2 mg/dL (8.4-10.2); Hemolysis Index 40
[2018-09-18 15:09] LABS: Basophils % (Manual) 0 % (0.0-1.8); Total Cells Counted 100
[2018-09-18 15:10] LABS: Anisocytosis Few; Platelet Estimate Consistent w Auto
[2018-09-18 16:05] LABS: Amphetamine Screen,Urine PRESUMPTIVE NEGATIVE; Benzodiazepines Screen,Urine PRESUMPTIVE NEGATIVE; Bilirubin,Urine NEG (Negative); Blood,Urine MOD (Negative); Cannabinoid Screen,Urine PRESUMPTIVE NEGATIVE; Cocaine Screen,Urine PRESUMPTIVE NEGATIVE; Color,Urine Yellow (Yellow); Hyaline Casts,Urine 4 /LPF; Mucus,Urine FEW /HPF; Urobilinogen,Urine < 2.0 mg/dL (<2.0)
[2018-09-18 16:17] LABS: Methadone Screen,Urine PRESUMPTIVE POSITIVE; Opiate Screen,Urine PRESUMPTIVE POSITIVE
[2018-09-18 17:13] VITALS: BP 136/79
== END 2018-09-18 17:13 | disposition home or self-care (01) ==
LOC: ED 12:50
DX: R56.9 Unspecified convulsions (principal); F17.200 Nicotine dependence, unspecified, uncomplicated; E11.9 Type 2 diabetes mellitus without complications; M19.90 Unspecified osteoarthritis, unspecified site; F32.9 Major depressive disorder, single episode, unspecified
CPT/HCPCS: 36415; 70450; 80053; 80307; 81001; 85007; 85025; 93005; 93010; 96365; 96366; 96375; 99284; G0480; J1953; J2060; J7030; 80320

== ENCOUNTER 2020-09-29 15:18 | Emergency (ER) | payer SELFPAY ==
[2020-09-29] MEDS ORDERED: OXYMETAZOLINE 0.05% NASAL SPRAY NS ONE (19:59)
[2020-09-29] MEDS ORDERED: diphenhydrAMINE 25 MG/10 ML ORAL LIQUID PO ONE (19:59)
[2020-09-29] MEDS ORDERED: cloNIDine 0.1 MG TAB PO ONE (19:59)
[2020-09-29] MEDS ORDERED: predniSONE 20 MG TAB PO ONE (20:07)
[2020-09-29] MEDS ORDERED: ACETAMINOPHEN 500 MG TAB PO ONE (20:19)
[2020-09-29 20:45] VITALS: BP 152/98
--- NOTE | 2020-09-29 20:47 | Emergency Department Report ---
ED General Adult HPI - General Chief complaint: Headache Stated complaint: NOSE SORE/BLEEDING/HEADACHE/EYE PAIN Time Seen by Provider: 09/29/20 19:46 Source: patient Mode of arrival: Ambulatory Limitations: No Limitations - History of Present Illness Initial comments: Patient 50-year-old -[place] female with history of hypertension and recurrent sinusitis who presents for headache nosebleed and sinus pressure x2 days. Patient describes pain as pressure aching exacerbated by movement at 4/10. Pain radiates to right eye. Patient states this is usual or for migraine headache associated with hypertension. Patient states she is out of clonidine for 3 weeks. Patient states yellow-greenish postnasal drip that developed into intermittent nosebleeds over the past 2 days. Last nosebleed this a.m. Which prompted visit to ED. There is no chest pain, dizziness, lightheadedness, back pain, nausea or vomiting or diaphoresis. Patient does have follow-up appointment with Dr. Elliott in 2 days. States she wanted to come in and get a blood pressure medicine refill. - Related Data Home Medications Medication Instructions Recorded Confirmed Last Taken Insulin Detemir [Levemir VIAL] 75 unit SQ QHS 01/12/17 01/12/17 Unknown ALPRAZolam [Xanax TAB] 2 mg PO BID 01/13/17 01/13/17 Unknown Insulin Detemir [Levemir VIAL] 75 units SQ BID 01/13/17 01/13/17 Unknown [place] 150 mg PO BID 01/13/17 01/13/17 Unknown Methadone 10 mg PO TID PRN 01/13/17 01/13/17 Unknown traZODone [Desyrel] 150 mg PO BID 01/13/17 01/13/17 Unknown Previous Rx's Medication Instructions Recorded Last Taken Type Butalb/Acetaminophen/Caffeine 1 cap PO Q8HR PRN #30 cap 12/19/16 Unknown Rx [Fioricet 50-300-40 mg CAP] Prochlorperazine [Compazine] 10 mg PO BID #30 tablet 12/19/16 Unknown Rx Aspirin [Adult Low Dose Aspirin EC] 81 mg PO DAILY #30 tablet. 01/13/17 Unknown Rx Simvastatin (NF) [Zocor TAB] 40 mg PO QHS #30 tablet 01/13/17 Unknown Rx levETIRAcetam [Keppra TAB] 500 mg PO BID #60 tablet 09/18/18 Unknown Rx Amoxicillin/Potassium Clav 1 each PO BID 7 Days #14 tablet 09/29/20 Unknown Rx [Augmentin 875-125 Tablet] amLODIPine 5 mg PO DAILY #30 tab 09/29/20 Unknown Rx diphenhydrAMINE [Benadryl CAP] 25 mg PO Q8HR PRN #15 capsule 09/29/20 Unknown Rx predniSONE [Deltasone] 40 mg PO QDAY 5 Days #10 tab 09/29/20 Unknown Rx Allergies Allergy/AdvReac Type Severity Reaction Status Date / Time haloperidol [From Haldol] Allergy Seizure Verified 01/12/17 13:07 haloperidol lactate Allergy Seizure Verified 01/12/17 13:07 [From Haldol] ED Review of Systems ROS: Stated complaint: NOSE SORE/BLEEDING/HEADACHE/EYE PAIN Other details as noted in HPI Eyes: denies: eye pain, eye discharge, vision change ENT: congestion, other (sinus pain and pressure) Respiratory: denies: cough, shortness of breath, wheezing Cardiovascular: denies: chest pain, palpitations Endocrine: no symptoms reported Gastrointestinal: denies: abdominal pain, nausea, vomiting, diarrhea Genitourinary: denies: urgency, dysuria, discharge Musculoskeletal: denies: back pain, joint swelling, arthralgia Skin: denies: rash, lesions Neurological: headache. denies: weakness, numbness, paresthesias, confusion, vertigo Psychiatric: as per HPI Hematological/Lymphatic: denies: easy bleeding, easy bruising ED Past Medical Hx - Past Medical History Previous Medical History?: Yes Hx Diabetes: Yes Hx Arthritis: Yes Hx Psychiatric Treatment: Yes (MANIC DEPRESSION) Additional medical history: fibromyalgia. - Surgical History Additional Surgical History: ECTOPIC . TONSILLECTOMY - Social History Smoking Status: Current Every Day Smoker - Medications Home Medications: Home Medications Medication Instructions Recorded Confirmed Last Taken Type Butalb/Acetaminophen/Caffeine 1 cap PO Q8HR PRN #30 cap 12/19/16 01/12/17 Unknown Rx [Fioricet 50-300-40 mg CAP] Prochlorperazine [Compazine] 10 mg PO BID #30 tablet 12/19/16 01/12/17 Unknown Rx Insulin Detemir [Levemir VIAL] 75 unit SQ QHS 01/12/17 01/12/17 Unknown History ALPRAZolam [Xanax TAB] 2 mg PO BID 01/13/17 01/13/17 Unknown History Aspirin [Adult Low Dose Aspirin EC] 81 mg PO DAILY #30 tablet. 01/13/17 Unknown Rx Insulin Detemir [Levemir VIAL] 75 units SQ BID 01/13/17 01/13/17 Unknown History [place] 150 mg PO BID 01/13/17 01/13/17 Unknown History Methadone 10 mg PO TID PRN 01/13/17 01/13/17 Unknown History Simvastatin (NF) [Zocor TAB] 40 mg PO QHS #30 tablet 01/13/17 Unknown Rx traZODone [Desyrel] 150 mg PO BID 01/13/17 01/13/17 Unknown History levETIRAcetam [Keppra TAB] 500 mg PO BID #60 tablet 09/18/18 Unknown Rx Amoxicillin/Potassium Clav 1 each PO BID 7 Days #14 tablet 09/29/20 Unknown Rx [Augmentin 875-125 Tablet] amLODIPine 5 mg PO DAILY #30 tab 09/29/20 Unknown Rx diphenhydrAMINE [Benadryl CAP] 25 mg PO Q8HR PRN #15 capsule 09/29/20 Unknown Rx predniSONE [Deltasone] 40 mg PO QDAY 5 Days #10 tab 09/29/20 Unknown Rx ED Physical Exam - General Limitations: No Limitations General appearance: alert, in no apparent distress - Head Head exam: Present: atraumatic, normocephalic - Eye Eye exam: Present: normal appearance, PERRL, EOMI. Absent: conjunctival injection Pupils: Present: normal accommodation - ENT ENT exam: Present: mucous membranes moist, TM's normal bilaterally, normal external ear exam, other (bilat turbinate boggy erythema yellow rhinorrhea bilat maxillary and frontal sinus pain with palpation) - Expanded ENT Exam Expanded Ear exam: Present: auricular hematoma Throat exam: Positive: other (airway patent no exudate no lesions uvula midline ). Negative: tonsillar erythema, tonsillomegaly, tonsillar exudate - Neck Neck exam: Present: full ROM. Absent: tenderness, meningismus, lymphadenopathy - Respiratory Respiratory exam: Present: normal lung sounds bilaterally. Absent: respiratory distress, wheezes, stridor - Cardiovascular Cardiovascular Exam: Present: regular rate, normal rhythm, normal heart sounds. Absent: systolic murmur, diastolic murmur, rubs, gallop - GI/Abdominal GI/Abdominal exam: Present: soft, normal bowel sounds. Absent: distended, tenderness, rigid - Rectal Rectal exam: Present: deferred - Extremities Exam Extremities exam: Present: normal inspection, full ROM, normal capillary refill. Absent: tenderness - Back Exam Back exam: Present: normal inspection, full ROM. Absent: tenderness, rash noted - Neurological Exam Neurological exam: Present: alert, oriented X3, CN II-XII intact, normal gait, reflexes normal. Absent: motor sensory deficit - Expanded Neurological Exam Expanded Patient oriented to: Present: person, place, time Speech: Present: fluid speech Motor strength exam: RUE: 5, LUE: 5, RLE: 5, LLE: 5 Best Eye Response ([place]): (4) open spontaneously Best Motor Response ([place]): (6) obeys commands Best Verbal Response ([place]): (5) oriented [place] Total: 15 - Psychiatric Psychiatric exam: Present: normal affect, normal mood - Skin Skin exam: Present: warm, dry, intact, normal color. Absent: rash ED Course Vital Signs 09/29/20 16:13 Temperature 99.0 F Pulse Rate 101 H Respiratory 18 Rate Blood Pressure 157/94 O2 Sat by Pulse 95 Oximetry ED Medical Decision Making - Medical Decision Making Headache is improved, there is no nosebleed at this time. Patient is amatory in ED without symptoms. Plan DC to home will refill blood pressure patient will follow-up with primary care doctor Dr. Elliott in 2 days as scheduled. Patient verbalized agreement and understanding of discharge plan. Patient DC'd home stable condition at this time. Critical care attestation.: If time is entered above; I have spent that time in minutes in the direct care of this critically ill patient, excluding procedure time. ED Disposition Clinical Impression: Epistaxis Sinusitis Qualifiers: Sinusitis location: maxillary Chronicity: acute Recurrence: recurrent Qualified Code(s): J01.01 - Acute recurrent maxillary sinusitis Hypertension Qualifiers: Hypertension type: essential hypertension Qualified Code(s): I10 - Essential (primary) hypertension Disposition: DC-01 TO HOME OR SELFCARE Is pt being admited?: No Does the pt Need Aspirin: No Condition: Stable Instructions: Hypertension (ED), Sinusitis, Adult, [id number], Sinus Headache, [id number], Nosebleed, [id number], Hypertension, Adult Additional Instructions: take medications as prescribed, follow up with Dr Elliott in 2 days scheduled return to emergency if symptoms worsen. Prescriptions: amLODIPine 5 mg PO DAILY #30 tab Amoxicillin/Potassium Clav [Augmentin 875-125 Tablet] 1 each PO BID 7 Days #14 tablet diphenhydrAMINE [Benadryl CAP] 25 mg PO Q8HR PRN #15 capsule PRN Reason: Congestion predniSONE [Deltasone] 40 mg PO QDAY 5 Days #10 tab Referrals: LEXI CHILEL MD [Staff Physician] - 3-5 Days Forms: Work/School Release Form(ED) Time of Disposition: 21:14
== END 2020-09-29 21:25 | disposition home or self-care (01) ==
LOC: ED 15:18
DX: J32.9 Chronic sinusitis, unspecified (principal); R04.0 Epistaxis; I10 Essential (primary) hypertension; E11.9 Type 2 diabetes mellitus without complications; M19.90 Unspecified osteoarthritis, unspecified site; M79.7 Fibromyalgia; F17.200 Nicotine dependence, unspecified, uncomplicated; Z98.890 Other specified postprocedural states; Z90.89 Acquired absence of other organs; Z88.8 Allergy status to other drugs, medicaments and biological substances; Z79.899 Other long term (current) drug therapy; Z79.4 Long term (current) use of insulin
CPT/HCPCS: 99282; J7512; Q0163

== ENCOUNTER 2021-07-27 15:38 | Emergency (ER) | payer SELFPAY ==
[2021-07-27 16:29] VITALS: BP 158/98
--- NOTE | 2021-07-27 23:54 | Emergency Department Report ---
ED General Adult HPI - General Chief complaint: Extremity Problem,Nontraumatic Stated complaint: PAIN NUMBNES RT ARM Time Seen by Provider: 07/27/21 23:04 Source: patient Mode of arrival: Ambulatory Limitations: No Limitations - History of Present Illness Initial comments: Ms. 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 She reports no traumatic event that preceded this issue patient ports no swelling, no fever, chills and sweats. No nausea vomiting. -: Gradual Quality: dull Consistency: constant Improves with: none Worsens with: none Associated Symptoms: denies: cough, diaphoresis, headaches, loss of appetite, malaise, nausea/vomiting, shortness of breath, syncope, weakness - Related Data Home Medications Medication Instructions Recorded Confirmed Last Taken Insulin Detemir [Levemir VIAL] 75 unit SQ QHS 01/12/17 01/12/17 Unknown ALPRAZolam [Xanax TAB] 2 mg PO BID 01/13/17 01/13/17 Unknown Insulin Detemir [Levemir VIAL] 75 units SQ BID 01/13/17 01/13/17 Unknown [place] 150 mg PO BID 01/13/17 01/13/17 Unknown Methadone 10 mg PO TID PRN 01/13/17 01/13/17 Unknown traZODone [Desyrel] 150 mg PO BID 01/13/17 01/13/17 Unknown Previous Rx's Medication Instructions Recorded Last Taken Type Butalb/Acetaminophen/Caffeine 1 cap PO Q8HR PRN #30 cap 12/19/16 Unknown Rx [Fioricet 50-300-40 mg CAP] Prochlorperazine [Compazine] 10 mg PO BID #30 tablet 12/19/16 Unknown Rx Aspirin [Adult Low Dose Aspirin EC] 81 mg PO DAILY #30 tablet 01/13/17 Unknown Rx Simvastatin (NF) [Zocor TAB] 40 mg PO QHS #30 tablet 01/13/17 Unknown Rx levETIRAcetam [Keppra TAB] 500 mg PO BID #60 tablet 09/18/18 Unknown Rx Amoxicillin/Potassium Clav 1 each PO BID 7 Days #14 tablet 09/29/20 Unknown Rx [Augmentin 875-125 Tablet] amLODIPine 5 mg PO DAILY #30 tab 09/29/20 Unknown Rx diphenhydrAMINE [Benadryl CAP] 25 mg PO Q8HR PRN #15 capsule 09/29/20 Unknown Rx predniSONE [Deltasone] 40 mg PO QDAY 5 Days #10 tab 09/29/20 Unknown Rx Ketorolac [Toradol] 10 mg PO Q6H PRN #10 07/27/21 Unknown Rx methOCARBAMOL [Robaxin TAB] 750 mg PO Q8H PRN #20 07/27/21 Unknown Rx Allergies Allergy/AdvReac Type Severity Reaction Status Date / Time haloperidol [From Haldol] Allergy Seizure Verified 01/12/17 13:07 haloperidol lactate Allergy Seizure Verified 01/12/17 13:07 [From Haldol] ED Review of Systems ROS: Stated complaint: PAIN NUMBNES RT ARM Other details as noted in HPI Comment: All other systems reviewed and negative ED Past Medical Hx - Past Medical History Hx Diabetes: Yes Hx Arthritis: Yes Hx Psychiatric Treatment: Yes (MANIC DEPRESSION) Additional medical history: fibromyalgia. - Surgical History Additional Surgical History: ECTOPIC . TONSILLECTOMY - Social History Smoking Status: Current Every Day Smoker - Medications Home Medications: Home Medications Medication Instructions Recorded Confirmed Last Taken Type Butalb/Acetaminophen/Caffeine 1 cap PO Q8HR PRN #30 cap 12/19/16 01/12/17 Unknown Rx [Fioricet 50-300-40 mg CAP] Prochlorperazine [Compazine] 10 mg PO BID #30 tablet 12/19/16 01/12/17 Unknown Rx Insulin Detemir [Levemir VIAL] 75 unit SQ QHS 01/12/17 01/12/17 Unknown History ALPRAZolam [Xanax TAB] 2 mg PO BID 01/13/17 01/13/17 Unknown History Aspirin [Adult Low Dose Aspirin EC] 81 mg PO DAILY #30 tablet. 01/13/17 Unknown Rx Insulin Detemir [Levemir VIAL] 75 units SQ BID 01/13/17 01/13/17 Unknown History [place] 150 mg PO BID 01/13/17 01/13/17 Unknown History Methadone 10 mg PO TID PRN 01/13/17 01/13/17 Unknown History Simvastatin (NF) [Zocor TAB] 40 mg PO QHS #30 tablet 01/13/17 Unknown Rx traZODone [Desyrel] 150 mg PO BID 01/13/17 01/13/17 Unknown History levETIRAcetam [Keppra TAB] 500 mg PO BID #60 tablet 09/18/18 Unknown Rx Amoxicillin/Potassium Clav 1 each PO BID 7 Days #14 tablet 09/29/20 Unknown Rx [Augmentin 875-125 Tablet] amLODIPine 5 mg PO DAILY #30 tab 09/29/20 Unknown Rx diphenhydrAMINE [Benadryl CAP] 25 mg PO Q8HR PRN #15 capsule 09/29/20 Unknown Rx predniSONE [Deltasone] 40 mg PO QDAY 5 Days #10 tab 09/29/20 Unknown Rx Ketorolac [Toradol] 10 mg PO Q6H PRN #10 07/27/21 Unknown Rx methOCARBAMOL [Robaxin TAB] 750 mg PO Q8H PRN #20 07/27/21 Unknown Rx ED Physical Exam - General Limitations: No Limitations General appearance: alert, in no apparent distress - Head Head exam: Present: atraumatic, normocephalic - Eye Eye exam: Present: normal appearance, PERRL, EOMI Pupils: Present: normal accommodation - ENT ENT exam: Present: normal exam, normal orophraynx, mucous membranes moist, TM's normal bilaterally - Neck Neck exam: Present: normal inspection, full ROM - Respiratory Respiratory exam: Present: normal lung sounds bilaterally. Absent: respiratory distress, wheezes, rales, rhonchi, chest wall tenderness, accessory muscle use - Cardiovascular Cardiovascular Exam: Present: regular rate, normal rhythm. Absent: systolic murmur, diastolic murmur, rubs, gallop - GI/Abdominal GI/Abdominal exam: Present: soft, normal bowel sounds. Absent: tenderness, guarding, rebound - Extremities Exam Extremities exam: Present: normal inspection - Back Exam Back exam: Present: normal inspection - Neurological Exam Neurological exam: Present: alert, oriented X3 - Psychiatric Psychiatric exam: Present: normal affect, normal mood - Skin Skin exam: Present: warm, dry, intact, normal color. Absent: rash ED Course Vital Signs 07/27/21 16:27 Temperature 98 F Pulse Rate 102 H Respiratory 16 Rate Blood Pressure 158/98 [Left] O2 Sat by Pulse 97 Oximetry Critical care attestation.: If time is entered above; I have spent that time in minutes in the direct care of this critically ill patient, excluding procedure time. ED Disposition Clinical Impression: Musculoskeletal pain of right upper extremity Disposition: HOME / SELF CARE / HOMELESS Is pt being admited?: No Does the pt Need Aspirin: No Condition: Stable Instructions: How to Use Cold Therapy, Pain Without a Known Cause Prescriptions: methOCARBAMOL [Robaxin TAB] 750 mg PO Q8H PRN #20 PRN Reason: arm pain Ketorolac [Toradol] 10 mg PO Q6H PRN #10 PRN Reason: Pain Referrals: ARISTIDES HOUSTON MD [Primary Care Provider] - 3-5 Days
== END 2021-07-27 23:55 | disposition home or self-care (01) ==
LOC: ED 15:38
DX: M79.641 Pain in right hand (principal); E11.9 Type 2 diabetes mellitus without complications; M19.90 Unspecified osteoarthritis, unspecified site; F31.9 Bipolar disorder, unspecified; Z98.890 Other specified postprocedural states; Z79.899 Other long term (current) drug therapy; F17.200 Nicotine dependence, unspecified, uncomplicated; Z91.09 Other allergy status, other than to drugs and biological substances
CPT/HCPCS: 99282